=== PATIENT | male | born 1980 | race Asian ===

== ENCOUNTER 2018-09-15 21:08 | Observation (INO) | payer OTHER ==
[2018-09-15] MEDS ORDERED: NS 1,000 ML IV ONE ×2 (21:15→22:35)
--- NOTE | 2018-09-15 21:16 | EDPHY ---
"H & P Stated Complaint: Mid abd pain, denies n/v/d Time Seen by Provider: 09/15/18 21:12 - Personal History Current Tetanus Diphtheria and Acellular Pertussis (TDAP): Unsure - Medical/Surgical History Hx Asthma: No Hx Chronic Respiratory Disease: No Hx Diabetes: No Hx Cardiac Disease: No Hx Renal Disease: No Hx Cirrhosis: No Hx Alcoholism: No Hx HIV/AIDS: No Hx Splenectomy or Spleen Trauma: No Other PMH: Denies - Social History Smoking Status: Never smoked Constitutional: Initial Vital Signs Temperature (C) 37.2 C 09/15/18 21:10 Heart Rate 90 09/15/18 21:10 Respiratory Rate 16 09/15/18 21:10 Blood Pressure 150/85 H 09/15/18 21:10 O2 Sat (%) 96 09/15/18 21:10 O2 Delivery Mode Room Air Allergies/Adverse Reactions: pistachio nut Allergy (Verified 09/15/18 21:10) Medical Decision Making - Diagnostics Imaging Results: Imaging Impressions Abdomen CT 09/15/18 21:16 Impression: CT findings compatible with appendicitis. Results called and discussed with Matthieu Garcia MD at 09/15/2018 22:23. A test result has been communicated to a licensed care provider and documented in the [facility] Findings | Result system on 09/15/2018 22:23, Message ID [id number]. Imaging: Discussed imaging studies w/ call center operations manager Radiologist, I viewed and interpreted images myself ED Course/Re-evaluation: CHIEF COMPLAINT: Abdominal pain HISTORY OF PRESENT ILLNESS: The patient is a 38 y/o male complaining of a sharp mid-abdominal pain onset at 19:00, 2 hours ago. The patient initially had a dull pain this afternoon. Around 1 hour after the pain started he developed chills but thought that his forehead felt warm. The patient reports that he had a small amount of food earlier this afternoon. No headache, body aches, lightheadedness, chest pain, heart palpitations, shortness of breath, cough, nausea, vomiting, urinary or bowel complaints, numbness, paresthesias. REVIEW OF SYSTEMS: A 10 point review of systems was performed and is negative with the exception of the elements mentioned in the history of present illness. PHYSICAL EXAM: HR, BP, O2 Sat, RR. Temp noted General Appearance: Alert, well hydrated, appropriate, and non-toxic appearing. Head: Atraumatic without scalp tenderness or obvious injury Eyes: Pupils equal, round, reactive to light and accommodation, EOMI, no trauma , no injection. Ears: Clear bilaterally, no perforation, normal landmarks Nose: Atraumatic, no rhinorrhea, clear. Throat: There is no erythema or exudates, no lesions, normal tonsils, mucus membranes moist. Neck: Supple, 2+ carotid upstroke, nontender, no lymphadenopathy. Respiratory: No retractions, no distress, no wheezes, and no accessory muscle use. Lungs are clear to auscultation bilaterally. Cardiovascular: Regular rate and rhythm, no murmurs, rubs, or gallops. Bilateral carotid, radial, dorsalis pedis, and posterior tibial pulses intact. Good capillary refill all extremities. Gastrointestinal: Positive McBurney's point. Abdomen is soft, non-distended, no masses, no rebound, no guarding, no peritoneal signs. Musculoskeletal: Normal active ROM of all extremities, atraumatic. Neurological: Alert, appropriate, and interactive. The patient has normal DTRs and non-focal cranial nerves, motor, sensory, and cerebellar exam. Skin: No rashes, good turgor, no nodules on palpation. Past medical history: Denies Past surgical history: Denies Family history: Denies Social history: Lives in [place], single, employed DIAGNOSTICS/PROCEDURES/CRITICAL CARE TIME: Abdominopelvic CT: Appendicitis. DIFFERENTIAL DIAGNOSIS: The differential diagnosis for the patient's abdominal pain included but was not limited to appendicitis, cholecystitis, hernias, testicular torsion, gastritis, and urinary tract infection. MEDICAL DECISION MAKING: The patient is a 38 y/o male presenting with a sharp mid-abdominal pain onset at 19:00, 2 hours ago. The patient initially had a dull pain this afternoon. On exam he has a positive McBurney's point. Labs and abdominopelvic CT ordered; 1L IV NS administered. 2141: I reviewed patient's labs which reveal a left shift without an elevated WBC. We have called CT to take the patient for his abdominopelvic CT. 2220: I spoke with Dr. Pereira, radiologist, who reports that the patient has appendicitis. 2gm IV Cefoxitin and additional 1L IV NS administered. 2226: I consulted with Dr. Curry, general surgeon, who agrees to consult on this patient and take him for an appendectomy. 2227: Reassessed patient and discussed laboratory and imaging findings. He is comfortable with plan for admission. - Data Points Laboratory Results: Laboratory Results 09/15/18 21:28 09/15/18 21:28 09/15/18 09/15/18 09/15/18 21:39 21:28 21:28 WBC 8.57 10^3/uL 10^3/uL (3.80-9.50) RBC 5.33 10^6/uL 10^6/uL (4.40-6.38) Hgb 16.9 g/dL g/dL (13.7-17.5) POC Hgb 15.3 gm/dL gm/dL (13.7-17.5) Hct 48.4 % % (40.0-51.0) POC Hct 45 % % (40-51) MCV 90.8 fL fL (81.5-99.8) MCH 31.7 pg pg (27.9-34.1) MCHC 34.9 g/dL g/dL (32.4-36.7) RDW 11.9 % % (11.5-15.2) Plt Count 274 10^3/uL 10^3/uL (150-400) MPV 8.5 fL L fL (8.7-11.7) Neut % (Auto) 81.8 % H % (39.3-74.2) Lymph % (Auto) 16.3 % % (15.0-45.0) [place] % (Auto) 1.1 % L % (4.5-13.0) Eos % (Auto) 0.2 % L % (0.6-7.6) Baso % (Auto) 0.4 % % (0.3-1.7) Nucleat RBC Rel Count 0.2 % % (0.0-0.2) Absolute Neuts (auto) 7.01 10^3/uL H 10^3/uL (1.70-6.50) Absolute Lymphs (auto) 1.40 10^3/uL 10^3/uL (1.00-3.00) Absolute Monos (auto) 0.09 10^3/uL L 10^3/uL (0.30-0.80) Absolute Eos (auto) 0.02 10^3/uL L 10^3/uL (0.03-0.40) Absolute Basos (auto) 0.03 10^3/uL 10^3/uL (0.02-0.10) Absolute Nucleated RBC 0.02 10^3/uL H 10^3/uL (0-0.01) Immature Gran % 0.2 % % (0.0-1.1) Immature Gran # 0.02 10^3/uL 10^3/uL (0.00-0.10) POC Sodium 143 mEq/L mEq/L (135-145) Sodium 139 mEq/L mEq/L (135-145) POC Potassium 3.7 mEq/L mEq/L (3.3-5.0) Potassium 4.0 mEq/L mEq/L (3.5-5.2) POC Chloride 103 mEq/L mEq/L (97-110) Chloride 102 mEq/L mEq/L (97-110) Carbon Dioxide 26 mEq/l mEq/l (22-31) POC Total CO2 26 mEq/L mEq/L (22-31) Anion Gap 11 mEq/L mEq/L (6-14) POC BUN 22 mg/dL mg/dL (7-23) BUN 23 mg/dL mg/dL (7-23) Creatinine 0.9 mg/dL mg/dL (0.7-1.3) POC Creatinine 1.0 mg/dL mg/dL (0.7-1.3) Estimated GFR > 60 Glucose 88 mg/dL mg/dL (70-100) POC Glucose 88 mg/dL mg/dL (70-100) Calcium 9.5 mg/dL mg/dL (8.5-10.4) Total Bilirubin 0.8 mg/dL mg/dL (0.1-1.4) Conjugated Bilirubin 0.3 mg/dL mg/dL (0.0-0.5) Unconjugated Bilirubin 0.5 mg/dL mg/dL (0.0-1.1) AST 25 IU/L IU/L (17-59) ALT 37 IU/L IU/L (21-72) Alkaline Phosphatase 94 IU/L IU/L (38-126) Total Protein 7.6 g/dL g/dL (6.3-8.2) Albumin 4.6 g/dL g/dL (3.5-5.0) Lipase 47 IU/L IU/L (23-300) Medications Given: Discontinued Medications Sodium Chloride (Ns) 1,000 mls @ 0 mls/hr IV EDNOW ONE; Wide Open PRN Reason: Protocol Stop: 09/15/18 21:16 Last Admin: 09/15/18 21:25 Dose: 1,000 mls Point of Care Test Results: Chemistry 09/15/18 21:39 POC Sodium 143 mEq/L mEq/L (135-145) POC Potassium 3.7 mEq/L mEq/L (3.3-5.0) POC Chloride 103 mEq/L mEq/L (97-110) POC Total CO2 26 mEq/L mEq/L (22-31) POC BUN 22 mg/dL mg/dL (7-23) POC Creatinine 1.0 mg/dL mg/dL (0.7-1.3) POC Glucose 88 mg/dL mg/dL (70-100) ISTAT H&H 09/15/18 21:39 POC Hgb 15.3 gm/dL gm/dL (13.7-17.5) POC Hct 45 % % (40-51) Departure - Departure Disposition: To OP Cath/Surgery Clinical Impression: Acute appendicitis Qualifiers: Acute appendicitis type: unspecified acute appendicitis type Qualified Code(s) : K35.80 - Unspecified acute appendicitis Condition: Fair Referrals: Sourav Camara DO [Primary Care Provider] - As per Instructions Report Scribed for: Matthieu Garcia Report Scribed by: Miriam Mcrae Date of Report: 09/15/18 Time of Report: 22:28"
[2018-09-15] MEDS ORDERED: IOPAMIDOL (ISOVUE-300) 100 ML BTL ONE (21:27)
[2018-09-15 21:36] LABS: PLATELET COUNT 274 10^3/uL (150-400)
[2018-09-15] MEDS ORDERED: cefOXitin SODIUM 1 GM in NS 50 ML IV ONE (22:23)
[2018-09-15] MEDS ORDERED: cefOXitin SODIUM 2 GM in NS 100 ML IV ONE (22:25)
[2018-09-15] MEDS ORDERED: ceFAZolin 1 GM/5 ML SYR ONE (23:20)
[2018-09-15] MEDS ORDERED: HEPARIN 5,000 UNIT/0.5 ML INJ ONE ×2 (23:20→23:21)
[2018-09-15] MEDS ORDERED: LR 1,000 ML IV SCH (23:45)
[2018-09-15] MEDS ORDERED: HYDROmorphONE/DILAUDID 1 MG/ML INJ IVP PRN (23:54)
[2018-09-15] MEDS ORDERED: ONDANSETRON 4 MG/2 ML VIAL IVP PRN (23:54)
[2018-09-16] MEDS ORDERED: KETOROLAC 15 MG/1 ML SDV IVP SCH
--- NOTE | 2018-09-16 00:02 | PDANEPAE ---
ANE History of Present Illness acut appendicitis ANE Past Medical History - Cardiovascular History Hx Hypertension: No Hx Arrhythmias: No Hx Chest Pain: No Hx Coronary Artery / Peripheral Vascular Disease: No Hx CHF / Valvular Disease: No Hx Palpitations: No - Pulmonary History Hx COPD: No Hx Asthma/Reactive Airway Disease: No Hx Recent Upper Respiratory Infection: No Hx Oxygen in Use at Home: No Hx Sleep Apnea: No - Endocrine History Hx Diabetes: No Hypothyroid: No Hyperthyroid: No Obesity: no ANE Review of Systems Review of systems is: negative Review of Systems: ANE Patient History - Allergies Allergies/Adverse Reactions: pistachio nut Allergy (Verified 09/15/18 21:10) - Home Medications Home medications: home medication list seen and reviewed - NPO status NPO Status: no food or drink >8 hours - Anes Hx Anes Hx: no prior problems - Smoking Hx Smoking Status: Never smoked - Family Anes Hx Family Anes Hx: none ANE Labs/Vital Signs - Labs Result Diagrams: 09/15/18 21:28 09/15/18 21:28 - Vital Signs Blood Pressure: 114/61 Heart Rate: 93 Respiratory Rate: 16 O2 Sat (%): 92 Height: 170.18 cm Weight: 70.307 kg ANE Physical Exam - Airway Neck exam: FROM Mallampati Score: Class 2 Mouth exam: normal dental/mouth exam - Pulmonary Pulmonary: no respiratory distress, clear to auscultation - Cardiovascular Cardiovascular: regular rate and rhythym, no murmur, rub, or gallop - ASA Status ASA Status: I, E ANE Anesthesia Plan Anesthesia Plan: general endotracheal anesthesia
[2018-09-16] MEDS ORDERED: fentaNYL 250 MCG/5 ML INJ ONE (00:06)
[2018-09-16] MEDS ORDERED: PROPOFOL 200 MG/20 ML VIAL ONE (00:06)
[2018-09-16] MEDS ORDERED: ONDANSETRON 4 MG/2 ML VIAL ONE (00:20)
[2018-09-16] MEDS ORDERED: ROCURONIUM 50 MG/5 ML VIAL ONE (00:20)
[2018-09-16] MEDS ORDERED: LIDOCAINE 2% 2 ML INJ ONE (00:20)
[2018-09-16] MEDS ORDERED: DEXAMETHASONE 4 MG/ML VIAL ONE (00:20)
[2018-09-16] MEDS ORDERED: KETOROLAC 30 MG/1 ML SDV ONE (00:53)
[2018-09-16] MEDS ORDERED: NEOSTIGMINE METHYLSULFATE 10 MG/10 ML MDV ONE (00:54)
[2018-09-16] MEDS ORDERED: GLYCOPYRROLATE 0.2 MG/1 ML VIAL ONE ×2 (00:54)
[2018-09-16] MEDS ORDERED: fentaNYL 100 MCG/2 ML INJ IVP PRN (01:02)
[2018-09-16] MEDS ORDERED: MEPERIDINE 25 MG/0.5 ML AMP IVP PRN (01:02)
[2018-09-16] MEDS ORDERED: PROMETHAZINE HCL 25 MG/ML INJ IVP PRN (01:02)
[2018-09-16] MEDS ORDERED: NALOXONE HCL 0.4 MG/ML INJ IVP PRN (01:02)
[2018-09-16] MEDS ORDERED: LR 500 ML IV PRN (01:02)
--- NOTE | 2018-09-16 01:02 | POSTANESTH ---
Post Anesthetic Evaluation Cardiovascular Status: Normal, Stable Respiratory Status: Normal, Stable Level of Consciousness/Mental Status: Can Participate in Eval Pain Control: Adequate, Prn Tx Ordered Nausea/Vomiting Control: Adequate, Prn Tx Ordered Complications Possibly Related to Anesthesia: None Noted
[2018-09-16 01:05] LABS: INR 1.22 (0.83-1.16); PROTIME(PATIENT) 14.9 SEC (12.0-15.0)
--- NOTE | 2018-09-16 01:05 | GHP ---
[f rep st] PREOP HISTORY AND PHYSICAL DATE OF ADMISSION: 09/15/2018 ADMITTING DIAGNOSIS: Acute appendicitis by CT and history. HISTORY: The patient is a 38-year-old male who awoke this morning feeling well. He had a breakfast of cereal. For lunch, he had bananas, dried mangoes and cheese. At approximately 4 to 5 this afternoon, his pain started. It was a dull diffuse abdominal pain and soon became sharp and localized at the umbilicus. This prompted his presentation to [facility] at 2100 hours. He is minimally hungry at this point. His last bowel movement was this morning. Approximately 10 days ago, he had a fever and a sore throat for several days. He has not had diarrhea. He has not traveled outside the [place] or had antibiotics in the last 6 months. He has had no prior similar symptoms. He has had no prior abdominal surgery. There is no history of inflammatory bowel disease. SOCIAL HISTORY: He does not smoke nor does he drink. He does work as an core java engineer. ALLERGIES: He has no known drug allergies. MEDICATIONS: He does not take any medications. PAST SURGICAL HISTORY: He has not had any prior surgery, but he did have a colonoscopy where polyps were identified and removed. PAST MEDICAL HISTORY: There is no history of rheumatic fever, tuberculosis, hepatitis, or transfusions. REVIEW OF SYSTEMS: He wears lenses for visual correction. He has a central serous retinopathy bilaterally. He has 1 dental crown. Review of systems otherwise quite negative. There are no limits on his activities. No history of steroid use. FAMILY HISTORY: His father is 71 and has had multiple colonic polyps removed. His mother at 56 in an auto accident. She had hypertension. The patient is followed in by a sister who is 10 years younger. She is alive and well. There are no bleeding disorders, clotting disorders, difficulty with anesthesia in the patient or the family. PHYSICAL EXAMINATION: VITAL SIGNS: His blood pressure is 114/61, 93. His temperature is 37.8. Room air saturations are 92%. GENERAL: He is alert, cooperative and quite pleasant. NEUROLOGIC: He is oriented to person, place, and time. GCS is 15. There are no focal lateralizing neurologic deficits. NECK: Supple, nontender. There is no thyroid enlargement. There are no carotid bruits. LYMPHATICS: There is no cervical, supraclavicular, axillary, or inguinal lymphadenopathy. BACK: Unremarkable. LUNGS: Clear to auscultation. CARDIAC: Shows S1, S2 to be normal. Normal split of S2 without murmurs, rubs, or gallops. ABDOMEN: Abdomen shows hypoactive bowel sounds. He is tender with cough over McBurney point at a 2 on a scale of 1-10. Psoas and obturator signs are negative to palpation. His abdomen is tender as follows: Left upper quadrant 1 /10, left mid abdomen 1, left lower quadrant 1, epigastrium 1, periumbilical area 1, suprapubic area 1-2, right upper quadrant 1, right mid abdomen 4, right lower quadrant 3-4. LABORATORY: His white blood cell count is 8.5 with 82% neutrophils, his hematocrit is 48, and his platelets are 274. His electrolytes are unremarkable. He has an acute unruptured appendicitis by CT, and there is no pelvic fluid identified on the CT. PLAN: I will plan a laparoscopic, possibly open, appendectomy. The patient understands the planned procedure and wishes to proceed as outlined. /[id number]/MODL MTDD
--- NOTE | 2018-09-16 01:16 | POSTOPPROG ---
Post Op Note Date of Operation: 09/16/18 Surgeon: Alen Curry Anesthesia: GET(General Endotracheal) Pre-op Diagnosis: acute appendicitis Post-op Diagnosis: acute unruptured appendicitis Indication: acute appendicitis Procedure: Laparoscopic appendectomy Findings: acute unruptured appendicitis Inf/Abcess present in the surg proc area at time of surgery?: No EBL: Minimal Total fluids administered: 600 Complications: none Bowel Protocol: N/A Clean Closure Performed: N/A Specimen(s): appendix
[2018-09-16] MEDS: ACETAMINOPHEN 500 MG TAB PO SCH ×3 (02:30→17:07)
[2018-09-16] MEDS: KETOROLAC 30 MG/1 ML SDV IVP SCH ×3 (05:10→18:42)
--- NOTE | 2018-09-16 09:40 | SOAPPROG ---
SOAP Progress Note Assessment/Plan: POD#1 09/16/18 09:36 Assessment: Afebrile, VSS No complaints but no stool or flatus yet. Incisions clean and dry Hypoactive bowel sounds Plan: Discharge this afternoon if taking a regular diet and doing well Subjective: Co complaints, No flatus or stool Objective: Vital Signs Temp Pulse Resp BP Pulse Ox 37.0 C 66 20 104/55 L 96 09/16/18 08:03 09/16/18 08:03 09/16/18 08:03 09/16/18 08:03 09/16/18 08:03 09/15/18 09/16/18 09/17/18 05:59 05:59 05:59 Intake Total 2260 Balance 2260 PT 14.9 SEC (12.0-15.0) 09/16/18 00:29 INR 1.22 (0.83-1.16) H 09/16/18 00:29 - Time Spent With Patient Time Spent With Patient: 15 - Pending Discharge Pending Discharge Within 24 Hours: Yes Pending Discharge Date: 09/17/18 Pending Discharge Time: 11:00 Physical Exam - Physical Exam General Appearance: WD/WN, alert, no apparent distress Neck: non-tender, full range of motion, supple Respiratory: chest non-tender, lungs clear, normal breath sounds Cardiac/Chest: regular rate, rhythm Abdomen: non-tender, soft, other (hypoactive bowels sounds) Male Genitalia: deferred Rectal: deferred Back: Normal inspection Skin: normal color, warm/dry Lymphatic: no adenopathy Extremities: normal range of motion, non-tender Neuro/Psych: no motor/sensory deficits, alert, normal mood/affect, oriented x 3 ICD10 Worksheet Patient Problems: Problems Problem Status Onset Acute appendicitis Acute
--- NOTE | 2018-09-16 11:51 | GDS ---
[f rep st] DISCHARGE SUMMARY DISCHARGE DIAGNOSIS: Acute unruptured appendicitis. NAME OF PROCEDURE: Laparoscopic appendectomy. DISCHARGE DISPOSITION: Home. CONDITION AT DISCHARGE: Improved/good. DIET: There are no restrictions on his diet, but I suggest he avoid constipating foods such as bananas, rice, applesauce and cheese. Diet texture: He is to have a regular texture. MEDICATIONS AT DISCHARGE: Will include Tylenol 1000 mg every 8 hours scheduled , Toradol 10 mg every 6 hours scheduled, Dilaudid 2 mg every 4 hours as needed for breakthrough. ACTIVITY RESTRICTIONS: 1. For the next 3 weeks, he is to shower only. Specifically, he is not to bathe, use a hot-tub or go swimming. 2. He is to lift less than 10 pounds. DISCHARGE INSTRUCTIONS: 1. He is to take a multivitamin with 100% of the [employer] of zinc, copper and C daily. 2. He is to watch for signs of infections. a. Superficial redness, warmth, tenderness, or swelling. I. Loss of appetite, malaise, fever, chills, or abdominal pain. 3. He is return to work on 09/26/2018. He will return to see Dr. Baron Christian or his colleagues, Dr. Fransisco Stone or Dr. Almaz Gallego in 2 weeks if there are any issues. Certainly, if he has any increasing pain or signs of infection, he is to promptly return for evaluation. Other than that, he will see his family doctor who is Sourav Camara. HOSPITAL COURSE: The patient was admitted and taken to the operating room where unruptured appendicitis was noted and removed. On postoperative day 1, he is doing well. He is only on clear liquids at this point. He can take a regular diet and is comfortable. /[id number]/MODL MTDD
--- NOTE | 2018-09-16 12:00 | GOP ---
[f rep st] OPERATIVE REPORT DATE OF OPERATION: 09/16/2018 SURGEON: Alen Curry MD PREOPERATIVE DIAGNOSIS: Acute appendicitis. POSTOPERATIVE DIAGNOSIS: Acute unruptured appendicitis. PROCEDURE PERFORMED: Laparoscopic appendectomy. FINDINGS: Acute unruptured appendicitis. No abscess or infection was identified. SPECIMENS: Appendix. ESTIMATED BLOOD LOSS: Minimal. INDICATIONS: Acute appendicitis. DESCRIPTION OF PROCEDURE: The patient was placed on the operating table in supine position. After induction of adequate general endotracheal anesthesia, the abdomen was carefully clipped, prepped, and draped. A surgical time-out was carried out and agreed to by all members of the operative team. A curvilinear incision is planned at the umbilicus. This was made sharply and deepened with Bovie electrocautery. Oblique left lower quadrant and transverse suprapubic incisions (both 5 mm) were made. These both were complicated by persistent bleeding. The source was finally identified and cauterized. Dissection at the infraumbilical incision was carried down to the anterior rectus sheath bilaterally. The rectus sheath was elevated between Allis clamps. Because of the prior bleeding issues, the midline fascia was opened with electrocautery. A pursestring of #0 PDS was placed at the fascial level. The 11, 12 mm disposable Aman trocar was positioned in the peritoneum. Insufflation was carried out in high flow to 15 mmHg. A 5 mm port was placed through the left lower quadrant port and additional one was placed at the suprapubic port. There was no obvious fluid in the pelvis. The liver looked unremarkable. The gallbladder looked normal. The patient is now placed in a Trendelenburg position and rotated 5 degrees to the left. The cecum was adherent to the lateral wall. These adhesions were carefully lysed. The appendix was easily visualized. It was carefully freed from adhesions to the retroperitoneum. The mesoappendix was then divided with Harmonic scalpel. The appendix is cleared circumferentially at its base. It is elevated. A 35 mm powered Endo-ANKUR stapler was used to transect the appendix at its base with a small cuff of cecum. Hemostasis was excellent. The appendix was placed in an EndoCatch bag and delivered via the umbilical port site. Pneumoperitoneum was re-established. The small bowel was run for a distance of approximately 3 feet. There was no evidence of mesenteric adenitis. There was no evidence of Meckel's diverticulum. There was no evidence of inguinal hernias. Irrigation with heparin and Ancef-containing irrigant was carried out. Hemostasis was deemed to be excellent. Ports were removed under direct vision. The midpoint of the infraumbilical fascial defect is identified on either side. Inverted simple suture of #0 PDS was placed. The pursestring was now tied. The subcutaneous tissue was well irrigated with heparin and Ancef- containing irrigant. Hemostasis was excellent. All skin incisions were closed with inverted simple sutures of #4-0 Vicryl. Dermabond was placed. The patient was transferred to recovery in stable and satisfactory condition. COMPLICATIONS: There were no complications. /[id number]/MODL MTDD
[2018-09-16 19:34] VITALS: BP 114/66
== END 2018-09-16 21:15 | disposition home or self-care (01) ==
LOC: F3E 09-16 02:01
PROVIDERS: ADMIT Surgery; ATTEND Surgery
PROC: 0DTJ4ZZ Resection of Appendix, Percutaneous Endoscopic Approach (ICD-10-PCS; principal; 2018-09-15)
DX: K35.80 Unspecified acute appendicitis (principal); E86.9 Volume depletion, unspecified
CPT/HCPCS: 44970; 74177; 96361; 96365; 99285; G0378; 82435-PO; 82565-PO; 82947-PO; 84132-PO; 84295-PO; 84520-PO; 85014-ER; J0694; J1100; J1644; J1885; J2405; J2704; J3010; Q9967